=== PATIENT | male | born 1995 | race Caucasian/White ===

== ENCOUNTER 2017-10-01 19:30 | Emergency (ER) | payer OTHER ==
[2017-10-01] MEDS ORDERED: ORPHENADRINE CITRATE 30 MG/ML ML ONE (19:53)
[2017-10-01] MEDS ORDERED: ACETAMINOPHEN EXTRA STRENGTH 500 MG TABLET ONE (19:54)
== END 2017-10-01 22:13 | disposition home or self-care (01) ==
LOC: EDH 19:30
DX: S16.1XXA Strain of muscle, fascia and tendon at neck level, initial encounter (principal); Z72.0 Tobacco use; V59.59XA Passenger in pick-up truck or van injured in collision with other motor vehicles in traffic accident, initial encounter; Y93.89 Activity, other specified; Y92.89 Other specified places as the place of occurrence of the external cause; Y99.8 Other external cause status
CPT/HCPCS: 72040; 96372; 99284; J2360